=== PATIENT | female | born 1950 | race Caucasian/White ===

== ENCOUNTER → 2017-10-21 12:40 | Outpatient (CLI) | payer MEDICARE, OTHER | END | disposition home or self-care (01) | LOC: D.MAMMO 11:15 | DX: Z12.31 Encounter for screening mammogram for malignant neoplasm of breast (principal) ==

== ENCOUNTER → 2017-12-08 15:14 | Outpatient (CLI) | payer MEDICARE | END | disposition home or self-care (01) | LOC: D.MRI 15:14 | DX: M54.5 Low back pain (principal) ==

== ENCOUNTER → 2018-03-01 14:03 | Outpatient (CLI) | payer MEDICARE | END | disposition home or self-care (01) | LOC: D.MRI 14:03 | DX: M25.562 Pain in left knee (principal) ==

== ENCOUNTER → 2018-04-19 11:28 | Outpatient (CLI) | payer MEDICARE | END | disposition home or self-care (01) | LOC: D.MRI 11:28 | DX: M54.12 Radiculopathy, cervical region (principal) ==

== ENCOUNTER 2018-06-29 10:47 | Day surgery (SDC) | payer MEDICARE ==
[~2018-06-29] VITALS: Ht 165.1 cm; Wt 104.5 kg
--- NOTE | ~2018-06-29 | OP ---
PATIENT NAME: LUCIAN HOOVER MEDICAL RECORD: [id number] :54 LOCATION:[facility] ADMISSION DATE: SURGEON: JANEL CLARK MD DATE OF OPERATION: 06/29/2018 PROCEDURE: Colonoscopy with polypectomy. BEATER ENGINEER: Janel Clark MD SCOPE: Olympus video colonoscope. MEDICATIONS: Per TIVA. The patient received 350 mg of propofol for this procedure, O2 4 liters. INDICATION FOR THE PROCEDURE: Screening test with a positive family history of colon cancer in the patient's mother. FINDINGS: Informed consent was given. The patient was made comfortable with the above medications. After reaching an adequate level of sedation by slow IV push, the patient was placed on her left side. The rectal exam revealed good sphincter tone, no fissures or fistulas were appreciated. No external skin tags were seen. The colonoscope was advanced to the cecum where the ileocecal valve and appendiceal orifice were identified. On withdrawal of the scope, mucosa was carefully inspected. The patient had fairly normal cecum to include the ileocecal valve and appendiceal orifice. She also had very minimal left-sided diverticulosis without diverticulitis. At 50 cm, within the colon, a 1 cm polyp was seen and removed with hot biopsy forceps technique. On retroflexion and final withdrawal of the scope, hemorrhoids were seen. IMPRESSION: 1. Normal cecum. 2. Polyp at 50 cm, 1 cm in size, removed with hot biopsy forcep technique. 3. Mild left-sided diverticulosis without diverticulitis. 4. Hemorrhoids. PLAN: 1. No aspirin, no anti-inflammatory drugs times 14 days. 2. High fiber diet. 3. Return to clinic on a p.r.n. basis. TRANSINT:[id number] Voice Confirmation ID: [id number] DOCUMENT ID: [id number] JANEL CLARK MD at 1215 CC: CHANI BAXTER MD [id number] DICTATION DATE: 06/29/18 1318 SNUBBER: 06/29/18 1409 [facility] 06/29/18 [place] [id number]
[2018-06-29 11:17] LABS: ALBUMIN 3.6 g/dL (3.4-5.0); BILIRUBIN - TOTAL 0.42 mg/dL (0.2-1.3); CALCIUM 8.8 mg/dL (8.5-10.1); CARBON DIOXIDE 28.1 mmol/L (21.0-32.0); CREATININE - SERUM 1.3 mg/dL (0.6-1.3); POTASSIUM - SERUM 4.1 mmol/L (3.5-5.1); PROTEIN - SERUM 6.8 g/dL (6.4-8.2)
[2018-06-29] MEDS ORDERED: BUPROPION XL300 MG PO (11:58)
[2018-06-29] MEDS ORDERED: OMEPRAZOLE40 MG PO (11:58)
[2018-06-29] MEDS ORDERED: CYMBALTA20 MG PO (11:59)
[2018-06-29] MEDS ORDERED: NEURONTIN 300300 MG PO (11:59)
[2018-06-29] MEDS ORDERED: DOXYCYCLINE HY100 M2 PO (12:00)
[2018-06-29] MEDS ORDERED: GENVOYA TAB (12:01)
[2018-06-29 12:12] VITALS: BP 142/92; Ht 165.1 cm; Wt 104.5 kg
[2018-06-29 13:38] LABS: BASOPHILS 0.7 % (0-2); EOSINOPHILS 1.7 % (0-7); HEMATOCRIT 37.6 % (36.0-48.0); HEMOGLOBIN 12.5 g/dL (12-16); IMMATURE GRANULOCYTES 0.2 % (0-5); LYMPHOCYTES 27.7 % (15-50); MCH 29.9 pg (26.0-34.0); MCHC 33.2 g/dL (31.0-37.0); MEAN PLATELET VOLUME 9.4 fL (7.4-10.4); MONOCYTES 6.1 % (2-11); NEUTROPHILS 63.6 % (40-80); PLATELET COUNT 219 10x3/uL (130-400); RBC 4.18 10x6/uL (4.00-5.40); RDW 13.4 % (11.5-14.5); WBC 4.1 10x3/uL (4.8-10.8)
== END 2018-06-29 14:30 | disposition home or self-care (01) ==
LOC: D.OPS 10:47
PROVIDERS: Anesthesiology
DX: D12.5 Benign neoplasm of sigmoid colon (principal); Z12.11 Encounter for screening for malignant neoplasm of colon; Z80.0 Family history of malignant neoplasm of digestive organs; K57.30 Diverticulosis of large intestine without perforation or abscess without bleeding; K64.8 Other hemorrhoids; Z01.812 Encounter for preprocedural laboratory examination

== ENCOUNTER 2018-07-20 11:43 | Day surgery (SDC) | payer MEDICARE ==
[~2018-07-20] VITALS: Ht 165.1 cm; Wt 104.5 kg
--- NOTE | ~2018-07-20 | OP ---
PATIENT NAME: LUCIAN HOOVER MEDICAL RECORD: [id number] :54 LOCATION:[facility] ADMISSION DATE: SURGEON: JANEL CLARK MD DATE OF OPERATION: 07/20/2018 PROCEDURE: EGD with biopsy. HYDRAULIC CONTROLS TECHNICIAN: Janel Clark MD SCOPE: Olympus video gastroscope. MEDICATIONS: Per TIVA. The patient received 350 mg of propofol for this procedure, O2 4 liters. She has diabetes mellitus, bladder problems and arthritis as well as fibromyalgia. INDICATION FOR THE PROCEDURE: Gastroesophageal reflux disease. FINDINGS AND DESCRIPTION OF PROCEDURE: Informed consent was given. The patient was made comfortable with the above medications. After reaching an adequate level of sedation by slow IV push, the patient was placed on her left side. The endoscope was then advanced under direct visualization through the posterior pharyngeal area and advanced to the distal esophagus. At this area, some very mild inflammation was appreciated and biopsies were obtained. No ulcers or erosions were noted. On entering the stomach, the patient was seen to have inflammation as well as some erythema and edema at the antral area. Again, no ulcers or erosions were seen. Biopsies were taken; however, to determine if the patient has Helicobacter pylori. Also noted in the proximal antral area with 1 small raised lesion which was biopsied, unsure of the significance of this finding. On entering the duodenal bulb, the patient had some erosions and these were biopsied. We then advanced the scope to the second part of the duodenum where fairly normal tissue was noted. IMPRESSION: 1. Mild distal esophagitis, biopsied. 2. Small 0.5 cm raised lesion in the proximal antrum, biopsied. 3. Mild gastritis by antral biopsy. 4. Duodenitis with some erosions in the duodenal bulb, biopsied. 5. Second part of the duodenum is normal. PLAN: 1. Continue omeprazole at 20 mg p.o. every morning and add famotidine at 40 mg p.o. at bedtime. 2. Caution with anti-inflammatory drugs. 3. The patient to follow reflux precautions stringently, both dietary and positional. She should not eat late at night, sit up for a couple hours after meals, use caution with chocolate, tomato, citrus, caffeine, fatty foods, peppermint, no tobacco, caution with alcohol, caution with caffeine. TRANSINT:[id number] Voice Confirmation ID: [id number] DOCUMENT ID: [id number] OPERATIVE REPORT [id number] LUCIAN HOOVER BRENDA MD at 1215 CC: CHNAI BAXTER MD [id number] DICTATION DATE: 07/20/18 1513 [employer]: 07/20/18 1551 [facility] 07/20/18 [place] [id number] [place] [id number]
[~2018-07-20 11:43] MED LIST: BUPROPION XL300 MG PO; CYMBALTA20 MG PO; DOXYCYCLINE HY100 M2 PO; GENVOYA TAB; NEURONTIN 300300 MG PO; OMEPRAZOLE40 MG PO
[2018-07-20 12:00] LABS: BASOPHILS 0.3 % (0-2); EOSINOPHILS 1.9 % (0-7); HEMATOCRIT 39.3 % (36.0-48.0); HEMOGLOBIN 13.3 g/dL (12-16); IMMATURE GRANULOCYTES 0.1 % (0-5); MCHC 33.8 g/dL (31.0-37.0); MCV 88.7 fL (80.0-100.0); MEAN PLATELET VOLUME 9.1 fL (7.4-10.4); MONOCYTES 6.8 % (2-11); NEUTROPHILS 63.9 % (40-80); PLATELET COUNT 195 10x3/uL (130-400); RBC 4.43 10x6/uL (4.00-5.40); RDW 13.3 % (11.5-14.5)
[2018-07-20 12:20] LABS: ANION GAP 12.6 mmol/L (8-16); CALCIUM 8.5 mg/dL (8.5-10.1); CARBON DIOXIDE 26.4 mmol/L (21.0-32.0)
[2018-07-20 13:29] VITALS: BP 142/88; Ht 165.1 cm; Wt 104.5 kg
== END 2018-07-20 16:30 | disposition home or self-care (01) ==
LOC: D.OPS 11:43
PROVIDERS: Anesthesiology
DX: K21.0 Gastro-esophageal reflux disease with esophagitis (principal); K31.9 Disease of stomach and duodenum, unspecified; K29.70 Gastritis, unspecified, without bleeding; K29.80 Duodenitis without bleeding; E11.9 Type 2 diabetes mellitus without complications; M19.90 Unspecified osteoarthritis, unspecified site; M79.7 Fibromyalgia; Z01.812 Encounter for preprocedural laboratory examination

== ENCOUNTER 2019-11-19 08:00 | Outpatient (CLI) | payer MEDICARE ==
[2018-07-20 13:29] VITALS: BMI 38.3
== END 2019-11-19 23:59 | disposition home or self-care (01) ==
LOC: D.MAMMO 08:00
PROVIDERS: ATTEND Family Medicine
DX: Z12.31 Encounter for screening mammogram for malignant neoplasm of breast (principal)